=== PATIENT | male | born 1965 | race African-American/Black ===

== ENCOUNTER 2017-09-14 15:10 | Emergency (ER) | payer BC, SELFPAY ==
[2017-09-14 15:43] LABS: #Basophils 0.2 thou/uL (0.0-0.2); #Eosinphils 0.4 thou/uL (0.0-0.7); #Lymphocytes 2.6 thou/uL (1.20-3.40); #Neutrophils 3.9 thou/uL (1.40-6.50); %Basophils 1.9 % (0.0-1.0); %Eosinophils 5.4 % (0.0-10.0); %Lymphocytes 32.7 % (21.0-51.0); %Monocytes 12.2 % (0.0-10.0); %Neutrophils 47.8 % (42.0-75.0); Hemoglobin 13.2 g/dL (14.0-18.0); Mean Corpuscular HGB CONC 31.7 g/dL (32.0-36.0); Mean Corpuscular Hemoglobin 27.6 pg (27.0-31.0); Mean Corpuscular Volume 87.1 fl (80.0-94.0); Mean Platelet Volume 7.3 fL (7.4-10.4); Platelet Count 267 thou/uL (130-400); RBC Distribution Width 13.7 % (11.5-14.5); Red Blood Cell (RBC) Count 4.79 mill/uL (4.70-6.10); White Blood Cell (WBC) Count 8.1 thou/uL (4.8-10.8)
[2017-09-14 16:04] LABS: ALT (SGPT) 21 U/L (8-55); AST (SGOT) 19 U/L (5-34); Albumin 4.1 g/dL (3.5-5.0); Alkaline Phosphatase 92 U/L (40-150); Anion Gap 11 mmol/L (10-20); BUN (Urea Nitrogen) 13 mg/dL (8.4-25.7); Bilirubin, Total 0.2 mg/dL (0.2-1.2); Calc. Creatinine Clearance 0 mL/min (70-130); Calcium 9.1 mg/dL (7.8-10.44); Carbon Dioxide 30 mmol/L (22-29); Chloride 104 mmol/L (98-107); Estimated GFR-MDRD 82; Globulin 3.4 g/dL (2.4-3.5); Glucose 102 mg/dL (70-105); Potassium 3.2 mmol/L (3.5-5.1); Protein, Total 7.5 g/dL (6.0-8.3); Sodium 142 mmol/L (136-145)
[2017-09-14 16:09] LABS: CKMB 2.1 ng/mL (0-6.6); Troponin I Less than 0.010 ng/mL (< 0.028)
--- NOTE | 2017-10-13 18:58 | EKG ---
Test Reason : Blood Pressure : / mmHG Vent. Rate : 086 BPM Atrial Rate : 086 BPM P-R Int : 148 ms QRS Dur : 108 ms QT Int : 380 ms P-R-T Axes : 057 025 024 degrees QTc Int : 454 ms Normal sinus rhythm Incomplete right bundle branch block Borderline ECG Confirmed by YOEL SMITH, MICHELE Vital ([id number]), visual effects editor BRIGITTE RENAE ([id number]) on 10/13/2017 6:58:16 PM Referred By: Confirmed By:MICHELE DIALLO MD
== END 2017-09-14 18:04 | disposition home or self-care (01) ==
LOC: ERS 15:10
DX: R07.9 Chest pain, unspecified (principal); E66.9 Obesity, unspecified; I10 Essential (primary) hypertension
CPT/HCPCS: 80053; 82553; 83880; 84484; 85025; 93005

== ENCOUNTER 2018-11-12 10:25 | Emergency (ER) | payer BC ==
--- NOTE | 2018-11-12 11:30 | RAD ---
LEFT SHOULDER THREE VIEWS: Indications: Shoulder pain. Injury. FINDINGS: No fracture or dislocation identified. AC joint is normally aligned. Mild degenerative spurring at th e AC joint is noted. IMPRESSION: No acute finding. POS: [facility]
== END 2018-11-12 11:38 | disposition home or self-care (01) ==
LOC: ERS 10:25
DX: M75.102 Unspecified rotator cuff tear or rupture of left shoulder, not specified as traumatic (principal); I10 Essential (primary) hypertension; I25.10 Atherosclerotic heart disease of native coronary artery without angina pectoris; Z79.899 Other long term (current) drug therapy; W01.0XXA Fall on same level from slipping, tripping and stumbling without subsequent striking against object, initial encounter